=== PATIENT | male | born 1995 | race Caucasian/White ===

== ENCOUNTER → 2020-10-17 | Outpatient (CLI) | payer OTHER ==
--- NOTE | 2020-10-18 08:31 | XR ---
Cervical spine HISTORY: M 52.2 5 views of the cervical spine Cervical vertebral bodies show preserved height, alignment, and bone mineralization. Disc spaces and prevertebral soft tissues are normal. No significant foraminal encroachment on oblique views. IMPRESSION: Normal cervical spine.
== END | disposition home or self-care (01) ==
LOC: RADXRMAIN 16:11
PROVIDERS: ATTEND Internal Medicine
DX: M54.2 Cervicalgia (principal)
CPT/HCPCS: 72050

== ENCOUNTER 2021-04-04 17:52 | Emergency (ER) | payer OTHER ==
[2021-04-04 18:51] VITALS: BP 114/78; PULSE 124; RESP 20; TEMP 100.7
== END 2021-04-04 20:28 | disposition left against medical advice (07) ==
LOC: EC 17:52
DX: Z53.21 Procedure and treatment not carried out due to patient leaving prior to being seen by health care provider (principal)
CPT/HCPCS: 87635; 99499

== ENCOUNTER → 2024-07-31 | Outpatient (CLI) | payer SELFPAY ==
--- NOTE | 2024-07-31 14:23 | US ---
EXAMINATION TYPE: US scrotum with doppler. DATE OF EXAM: 07/31/2024 COMPARISON: NONE CLINICAL INDICATION: Male, 29 years old with history of N50.812 LEFT TESTICULAR PAIN; Left side pain TECHNIQUE: Grayscale, color Doppler and spectral Doppler imaging of the scrotum. FINDINGS: EXAM MEASUREMENTS: TESTICLES: Right Testicle: 4.4 x 2.0 x 4.0 cm Left Testicle: 3.7 x 1.8 x 2.5 cm EPIDIDYMIS HEAD: Right Epididymis: .5 x .8 x .7 cm Left Epididymis: 1.3 x .5 x .5 cm Doppler performed to assess for testicular vascularity; good bilateral color flow and spectral wavefo tavia are seen. There is no evidence of testicular torsion. Presence of hydroceles: Small amount of fluid seen left side Presence of varicoceles: no IMPRESSION: No evidence for acute process. No evidence for intratesticular mass. Appropriate arterial and venous spectral waveforms to the testes. [facility], , 07/31/2024 2:21 PM
--- NOTE | 2024-07-31 14:24 | US ---
EXAMINATION TYPE: US kidneys/renal and bladder DATE OF EXAM: 07/31/2024 COMPARISON: NONE CLINICAL INDICATION: Male, 29 years old with history of R10.9 UNSPECIFIED ABD; Right flank pain TECHNIQUE: Grayscale imaging of the bilateral kidneys and urinary bladder: FINDINGS: EXAM MEASUREMENTS: Right Kidney: 11.1 x 4.3 x 4.9 cm Left Kidney: 11.7 x 5.2 x 4.5 cm Right Kidney: No hydronephrosis or masses seen Left Kidney: No hydronephrosis or masses seen Bladder: Anechoic Bilateral Jets seen: no There is no evidence for hydronephrosis at this point in time. No nephrolithiasis is seen. No edin s are identified. The urinary bladder is anechoic. IMPRESSION: Unremarkable study [facility], , 07/31/2024 2:21 PM
== END | disposition home or self-care (01) ==
LOC: RADUSWWP 13:44
PROVIDERS: ATTEND Internal Medicine
DX: N50.812 Left testicular pain (principal); R10.9 Unspecified abdominal pain
CPT/HCPCS: 76770; 76870; 93975